=== PATIENT | male | born 1955 | race African-American/Black ===

== ENCOUNTER 2017-02-26 15:28 | Emergency (ER) | payer BC | END 2017-02-26 20:35 | disposition home or self-care (01) | LOC: ER 15:28 | DX: E11.65 Type 2 diabetes mellitus with hyperglycemia (principal); R42 Dizziness and giddiness; I10 Essential (primary) hypertension; E78.00 Pure hypercholesterolemia, unspecified; K21.9 Gastro-esophageal reflux disease without esophagitis; E66.9 Obesity, unspecified; Z79.4 Long term (current) use of insulin; Z79.899 Other long term (current) drug therapy | CPT/HCPCS: 36415; 96361; 96374 ==

== ENCOUNTER 2017-03-01 10:04 | Inpatient (IN) | payer BC, OTHER ==
[~2017-03-01] VITALS: Ht 175.3 cm; Wt 103.0 kg
--- NOTE | 2017-03-01 16:09 | NUR ---
1600 signing off report given to racheal benitez
--- NOTE | 2017-03-01 17:35 | NUR ---
1600: REPORT FROM TAVON DOMÍNGUEZ; AGREE WITH PREVIOUS ASSESSMENT, ORDERS NOTED.
--- NOTE | 2017-03-02 14:50 | NUR ---
REPORT TO Robinson RYAN RN
== END 2017-03-06 15:50 | disposition home health service (06) | DRG 64 ==
LOC: SWI 10:04
PROVIDERS: ADMIT Internal Medicine
PROC: 3E0234Z Introduction of Serum, Toxoid and Vaccine into Muscle, Percutaneous Approach (ICD-10-PCS; principal; 2017-03-06)
DX: I63.9 Cerebral infarction, unspecified (principal); I63.012 Cerebral infarction due to thrombosis of left vertebral artery; G81.94 Hemiplegia, unspecified affecting left nondominant side; R27.0 Ataxia, unspecified; E11.9 Type 2 diabetes mellitus without complications; I10 Essential (primary) hypertension; E78.5 Hyperlipidemia, unspecified; E66.9 Obesity, unspecified; Z68.33 Body mass index [BMI] 33.0-33.9, adult; Z79.82 Long term (current) use of aspirin; Z79.02 Long term (current) use of antithrombotics/antiplatelets; Z79.4 Long term (current) use of insulin; Z79.899 Other long term (current) drug therapy; Z87.891 Personal history of nicotine dependence; Z83.3 Family history of diabetes mellitus; Z23 Encounter for immunization
CPT/HCPCS: 97162-GP; 97165; J1650

== ENCOUNTER 2017-04-09 12:18 | Emergency (ER) | payer BC, OTHER | END 2017-04-09 16:50 | disposition home or self-care (01) | LOC: ER 12:18 | DX: K85.30 Drug induced acute pancreatitis without necrosis or infection (principal); T46.5X5A Adverse effect of other antihypertensive drugs, initial encounter; E11.9 Type 2 diabetes mellitus without complications; I10 Essential (primary) hypertension | CPT/HCPCS: 36415; 96374; 96376; Q9963; Q9967 ==